=== PATIENT | male | born 1955 | race Caucasian/White ===

== ENCOUNTER 2024-01-05 12:10 | Outpatient (CLI) | payer MEDICARE ==
[2024-01-05 13:31] LABS: Hematocrit 35.9 % (38.8-50.0); Hemoglobin 12.5 g/dL (13.5-17.5); Mean Corpuscular HGB CONC 34.8 g/dL (32.0-36.0); Mean Corpuscular Volume 106.2 fL (81.2-95.1); Mean Platelet Volume 8.9 fL (7.4-10.4); Platelet Count 181 10x3/uL (150-450); RBC Distribution Width 14.4 % (11.5-14.5); Red Blood Cell (RBC) Count 3.38 10x6/uL (4.32-5.72); White Blood Cell (WBC) Count 6.1 10x3/uL (3.5-10.5)
== END 2024-01-05 12:11 | disposition home or self-care (01) ==
LOC: CSHLAB 12:10
PROVIDERS: ATTEND Surgery
DX: Z01.812 Encounter for preprocedural laboratory examination (principal); K63.5 Polyp of colon
CPT/HCPCS: 85027

== ENCOUNTER 2024-01-08 06:13 | Day surgery (SDC) | payer MEDICARE ==
[2024-01-08] MEDS ORDERED: PROPOFOL 20 ML ONE ×2 (07:17→07:21)
[2024-01-08] MEDS ORDERED: Lidocaine 1% PF 5 ML VIAL ONE (07:17)
[2024-01-08] MEDS ORDERED: PHENYLEPHRINE-NS 100 MCG/ML 10 ML SYRINGE ONE (07:39)
== END 2024-01-08 08:35 | disposition home or self-care (01) ==
LOC: CSHSDC 06:13
PROVIDERS: ATTEND Surgery
PROC: 0DJD8ZZ Inspection of Lower Intestinal Tract, Via Natural or Artificial Opening Endoscopic (ICD-10-PCS; principal; 2024-01-08)
DX: Z12.11 Encounter for screening for malignant neoplasm of colon (principal); K57.30 Diverticulosis of large intestine without perforation or abscess without bleeding; K64.1 Second degree hemorrhoids; K21.9 Gastro-esophageal reflux disease without esophagitis; J30.2 Other seasonal allergic rhinitis; D64.9 Anemia, unspecified; Z87.891 Personal history of nicotine dependence; Z79.899 Other long term (current) drug therapy; Z98.890 Other specified postprocedural states
CPT/HCPCS: J2704